=== PATIENT | female | born 1985 | race American Indian/Alaskan Native ===

== ENCOUNTER 2017-02-16 18:06 | Emergency (ER) | payer MEDICAID ==
[2017-02-16] MEDS ORDERED: ZESTRIL PO ONE (18:43)
--- NOTE | 2017-02-16 18:52 | Emergency Department Report ---
Chief Complaint: Headache Stated Complaint: SINUS INFECTION - HPI History of Present Illness: 31-year-old female past medical history hypertension presents with complaint of running nose or sore throat earache and dry nonproductive cough. Patient states she had episode where she became very faint and nearly lost consciousness while at work earlier today. Patient also states she has not taken her lisinopril in over one week. - ROS Review of Systems: URI symptoms, episode of syncope at work today and no blood pressure medicines in over one week - Exam Vital Signs: Vital Signs 02/16/17 18:11 Temperature 98.2 F Pulse Rate 86 Blood Pressure 155/110 O2 Sat by Pulse 16 L Oximetry Physical Exam: Awake alert and oriented 3, right and left-sided TM erythema MSE screening note: Focused history and physical exam performed. Due to findings the following was ordered: Screening Assessment/Plan/Differential Dx: URI symptoms, possible otitis versus sinusitis, near syncopal event 1- This initial assessment/diagnostic orders/clinical plan/ treatment(s) is/are subject to change based on pt's health status, clinical progression and re- assessment by fellow clinical providers in the ED. Further treatment and workup at subsequent clinical provers discretion. Patient/guardians urged not to elope from ED as their condition may be serious if not clinically assessed and managed. 2-urinalysis, EKG, labs ED Disposition for MSE Condition: Stable
[2017-02-16 19:21] LABS: Basophils % (Auto) 1.1 % (0.0-1.8); Eosinophils % (Auto) 0.4 % (0.0-4.3); Hemoglobin 13.5 gm/dl (10.1-14.3); Mean Corpuscular HGB Conc 33 % (30-34); Mean Corpuscular Hemoglobin 27 pg (28-32); Mean Corpuscular Volume 82 fl (79-97); Platelet Count 372 K/mm3 (140-440); Red Blood Count 4.99 M/mm3 (3.65-5.03); Red Cell Distribution Width 14.8 % (13.2-15.2); White Blood Count 7.8 K/mm3 (4.5-11.0)
[2017-02-16 19:29] LABS: Anion Gap 21 mmol/L; BUN/Creatinine Ratio 10; Blood Urea Nitrogen 7 mg/dL (7-17); Carbon Dioxide 20 mmol/L (22-30); Chloride 103.2 mmol/L (98-107); Glucose 84 mg/dL (65-100); Potassium 4.1 mmol/L (3.6-5.0); Sodium 140 mmol/L (137-145)
[2017-02-16] MEDS ORDERED: CATAPRES ONE (23:16)
[2017-02-16] MEDS ORDERED: CATAPRES PO ONE (23:20)
[2017-02-16 23:21] VITALS: BP 163/119
== END 2017-02-16 23:28 | disposition left against medical advice (07) ==
LOC: ED 18:06
DX: R05 Cough (principal); R09.89 Other specified symptoms and signs involving the circulatory and respiratory systems; Z53.21 Procedure and treatment not carried out due to patient leaving prior to being seen by health care provider
CPT/HCPCS: 36415; 80048; 84703; 85025; 93005; 93010

== ENCOUNTER 2017-02-17 07:59 | Emergency (ER) | payer MEDICAID ==
[2017-02-17 08:07] VITALS: BP 144/99
--- NOTE | 2017-02-17 09:38 | Emergency Department Report ---
Chief Complaint: Upper Respiratory Infection Stated Complaint: POSS SINUS INFECTION Time Seen by Provider: 02/17/17 09:23 - Exam Vital Signs: Vital Signs 02/17/17 08:04 Temperature 97.8 F Pulse Rate 91 H Respiratory 16 Rate Blood Pressure 144/99 O2 Sat by Pulse 97 Oximetry MSE screening note: Focused history and physical exam performed. Due to findings the following was ordered: ED Disposition for MSE Condition: Stable Referrals: PRIMARY CARE, [Primary Care Provider] - 3-5 Days
--- NOTE | 2017-02-17 09:47 | Emergency Department Report ---
HPI - General Chief Complaint: Upper Respiratory Infection Time Seen by Provider: 02/17/17 09:23 - HPI HPI: This is a 31-year-old female with a history of facial-pressure currently controlled with medication presents to ED complaining of ear and facial aching pain 3 days. Patient's issues as an aching on her left sided facial more than the right side for the past 3 days. Patient's issues related to take some over- the-counter medication due to her pain out of her lisinopril for the past week. ED Past Medical Hx - Past Medical History Hx Hypertension: Yes - Surgical History Past Surgical History?: No - Social History Smoking Status: Never Smoker Substance Use Type: None - Medications Home Medications: Home Medications Medication Instructions Recorded Confirmed Last Taken Type Acetamin/Codeine 120-12Mg/5 ml 5 ml PO TID PRN #60 ml 02/17/17 Unknown Rx [Tylenol/Codeine] Fluticasone [Flonase] 1 spray NS QDAY #1 bottle 02/17/17 Unknown Rx Lisinopril 20 mg PO DAILY #30 tablet 02/17/17 Unknown Rx predniSONE [Deltasone] 20 mg PO QDAY #4 tablet 02/17/17 Unknown Rx ED Review of Systems ROS: Stated complaint: POSS SINUS INFECTION Other details as noted in HPI Constitutional: denies: chills, fever Eyes: denies: eye pain, eye discharge, vision change ENT: congestion. denies: ear pain, throat pain Respiratory: denies: cough, shortness of breath, wheezing Cardiovascular: denies: chest pain, palpitations Endocrine: no symptoms reported Gastrointestinal: denies: abdominal pain, nausea, diarrhea Genitourinary: denies: urgency, dysuria, discharge Musculoskeletal: denies: back pain, joint swelling, arthralgia Skin: denies: rash, lesions Neurological: denies: headache, weakness, paresthesias Psychiatric: denies: anxiety, depression Hematological/Lymphatic: denies: easy bleeding, easy bruising Physical Exam - Physical Exam Vital Signs: Vital Signs 02/17/17 08:04 Temperature 97.8 F Pulse Rate 91 H Respiratory 16 Rate Blood Pressure 144/99 O2 Sat by Pulse 97 Oximetry Physical Exam: GENERAL: Alert and oriented x3, no apparent distress, Normal Gait, atraumatic. HEAD: Head is normocephalic and a-traumatic. EYES: Extra ocular muscles are intact. Pupils are equal, round, and reactive to light and accommodation. EARS: symetrical, atraumatic, non tender, ear canal clear and moderate cerumen, tympanic membrance non inflamed. gross auditory nml bilaterally. NOSE: Nose symetrical, Nontender,Nares appeared normal. Maxillary sinus tenderness, frontal sinus tenderness MOUTH:Mouth is well hydrated and without lesions. Tonsils nonerythematous or swollen, Uvula midline, Tongue not elevated. Mucous membranes are moist. Posterior pharynx clear, no exudate or lesions. Patent airways. NECK: Supple. Non edematous, No lymphadenopathy or thyromegaly. LUNGS: Symetrical with respiration, No wheezing, no rales or crackles, CTAB. HEART: S1, S2 present, regular rate and rhythm without murmur, no rubs, no gallops. Non tender to palpation BACK: Full range of motion, no spinal tenderness, nontender to palpation. SKIN: Warm and dry, No lesions, No ulceration or induration present. ED Course Vital Signs 02/17/17 08:04 Temperature 97.8 F Pulse Rate 91 H Respiratory 16 Rate Blood Pressure 144/99 O2 Sat by Pulse 97 Oximetry ED Medical Decision Making - Medical Decision Making 31 y o of female presents with mild sinusitis infection ED course: Patient received prednisone and a dose of her lisinopril ED I discussed the patient to take medication as prescribed. I discussed if worsen symptoms to return to ED immediately. I discussed patient symptomatic relief [id number] medications Vital signs are normal. Patient is in no acute or respiratory distress. Discussed the patient to follow-up with the primary care physician in 3-5 days. Critical care attestation.: If time is entered above; I have spent that time in minutes in the direct care of this critically ill patient, excluding procedure time. ED Disposition Clinical Impression: Sinusitis chronic, frontal Disposition: DC-01 TO HOME OR SELFCARE Is pt being admited?: No Does the pt Need Aspirin: No Condition: Stable Instructions: Sinusitis (ED) Additional Instructions: Make sure to follow up with the primary care physician as discussed. Take all your medications as you've been prescribed. If you have any worsening symptoms or develop new symptoms please return to ED immediately. Prescriptions: Acetamin/Codeine 120-12Mg/5 ml [Tylenol/Codeine] 5 ml PO TID PRN #60 ml PRN Reason: Pain Fluticasone [Flonase] 1 spray NS QDAY #1 bottle Lisinopril 20 mg PO DAILY #30 tablet predniSONE [Deltasone] 20 mg PO QDAY #4 tablet Referrals: PRIMARY CARE,MD [Primary Care Provider] - 3-5 Days [facility] [Outside] - 3-5 Days [facility] [Outside] - 3-5 Days Forms: Accompanied Note, Work/School Release Form(ED) Time of Disposition: 10:28
[2017-02-17] MEDS ORDERED: DELTASONE PO ONE (10:02)
[2017-02-17] MEDS ORDERED: ZESTRIL PO ONE (10:02)
== END 2017-02-17 10:35 | disposition home or self-care (01) ==
LOC: ED 07:59
DX: J32.1 Chronic frontal sinusitis (principal); I10 Essential (primary) hypertension
CPT/HCPCS: 99282; J7512